=== PATIENT | male | born 1990 | race Hispanic/Latino ===

== ENCOUNTER 2023-09-16 10:47 | Emergency (ER) | payer SELFPAY ==
[2023-09-16] MEDS ORDERED: LIDOCAINE 2% W/EPI 1:200,000 MPF 20 ML VIAL IM ONE (11:35)
--- NOTE | 2023-09-16 12:08 | RAD REPORT ---
EXAM DESCRIPTION: RAD - Tib Fib Left - 09/16/2023 12:01 pm CLINICAL HISTORY: laceration COMPARISON: No comparisons FINDINGS/IMPRESSION: No acute fracture. No malalignment. No significant focal degenerative changes. Eccentric nonaggressive appearing sclerotic focus in the proximal tibia is consistent with a benign f ibro-osseous lesion of no clinical significance. No radiopaque foreign body .
--- NOTE | 2023-09-16 12:54 | ER ---
Nurse's Notes 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 Coronavirus screen: ll1 Client denies travel out of the [place] in the last 14 days. At this time, the client does not indicate any symptoms associated with coronavirus-19. Ebola Screen: Patient denies travel to an Ebola-affected area in the 21 days before illness onset. Complicating Factors: There are no complicating factors for this patient. Initial Sepsis Screen: Does the patient meet any 2 criteria? No. Patient's initial sepsis screen is negative. Does the patient have a suspected source of infection? No. Patient's initial sepsis screen is negative. Risk Assessment: Do you want to hurt yourself or someone else? Patient reports no desire to harm self or others. Onset of symptoms was September 16, 2023. 10:58 Method Of Arrival: Ambulatory ll1 10:58 Acuity: BAIRON 3 ll1 Historical: - Allergies: 10:58 No Known Allergies; ll1 - PMHx: 10:58 None; ll1 - PSHx: 10:58 None; ll1 Historical Immunization: - Administered Vaccines 13:03 Doxycycline PO 100 mg tl4 13:03 Tetanus Toxoid,Adsorbed IM 0.5 ml tl4 Sales Support Representative: [email or web address]; Exp: SatOct 22 2025; Lot #: [id number]; Series: 1 of 1; Patient Consent: Obtained; Date/Time: ; Source Name: Ramakrishna Hernandez; Source Relationship: Self; Address Information: [address] [place] [id number]; ; Education: Provided; VIS Presented Date: ; VIS Publication: Tetanus/Diphtheria (Td) Vaccine VIS 07/31/2016 (historic) 12:04 Lidocaine Infiltration (2 %) 10 ml tl4 - Immunization history:: Adult Immunizations up to date. - Infectious Disease History:: Denies. - Social history:: Smoking status: Patient reports the use of cigarette tobacco products, smokes one-half pack cigarettes per day. Screenin:54 [facility] ED Fall Risk Assessment (Adult) History of falling in the last 3 months, hb including since admission No falls in past 3 months (0 pts) Confusion or Disorientation No (0 pts) Intoxicated or Sedated No (0 pts) Impaired Gait Yes (1 pt) Mobility Assist Device Used No (0 pt) Altered Elimination No (0 pt) Score/Fall Risk Level 0 - 2 = Low Risk Oriented to surroundings, Maintained a safe environment. Abuse screen: Denies threats or abuse. Nutritional screening: No deficits noted. Tuberculosis screening: No symptoms or risk factors identified. Assessment: 10:54 General: Appears in no apparent distress. uncomfortable, Behavior is calm, cooperative. hb Pain: Complains of pain in left calf Pain currently is 3 out of 10 on a pain scale. Quality of pain is described as aching, Is continuous. Neuro: Level of Consciousness is awake, alert, obeys commands, Oriented to person, place, time, situation. Cardiovascular: Rhythm is regular. Respiratory: Respiratory effort is even, unlabored, Respiratory pattern is regular, symmetrical. GI: Abdomen is round non-distended. : No signs and/or symptoms were reported regarding the genitourinary system. EENT: No signs and/or symptoms were reported regarding the EENT system. Derm: Skin is intact, Skin is dry, Skin is normal, two inch laceration noted to pt's left calf, no active bleeding noted, pt states "I was in the water fishing and my leg fell in a whole and something cut me". 10:54 Musculoskeletal: Range of motion: limited in left leg. Injury Description: Laceration hb sustained to left calf is clean, 2.6 to 7.5 cm long, not bleeding. 12:00 Reassessment: No changes from previously documented assessment. hb 13:15 Reassessment: No changes from previously documented assessment. rs5 Vital Signs: 10:58 BP 156 / 81; Pulse 89; Resp 17; Pulse Ox 100% ; Weight 90.72 kg; Pain 6/10; ll1 13:18 BP 128 / 82; Pulse 70; Resp 18; Temp 98.7(O); Pulse Ox 100% on R/A; Pain 0/10; tl4 10:58 Pain Scale: Adult ll1 13:18 Pain Scale: Adult tl4 ED Course: 10:51 Patient arrived in ED. ra3 10:51 Maxx Palacios PA is PHCP. cp 10:51 Maxx France MD is Attending Physician. cp 10:54 Patient has correct armband on for positive identification. Placed in gown. Bed in low hb position. Call light in reach. Side rails up X2. 10:58 Arm band placed on. ll1 10:59 Triage completed. ll1 11:33 Michael Pradhan, RN is Primary Nurse. rs5 12:00 No provider procedures requiring assistance completed. hb 12:02 XRAY Tib Fib LEFT In Process Unspecified. EDMS 13:19 Provided Education on: call camacho. tl4 13:19 Patient did not have IV access during this emergency room visit. tl4 Administered Medications: 11:26 CANCELLED (Physician Discretion): lidocaine(2 %) 10 ml 5 ml Infiltration once; to cp bedside 12:04 Drug: Lidocaine Infiltration (2 %) 10 ml 5 ml Infiltration once; to bedside with tl4 epinephrine {Note: administered by JOSSELIN Do.} Volume: 5 ml; Route: Infiltration; 12:20 Follow up: Response: No adverse reaction tl4 13:03 Drug: Doxycycline PO 100 mg PO once Route: PO; tl4 13:18 Follow up: Response: No adverse reaction tl4 13:03 Drug: Tetanus Toxoid,Adsorbed IM 0.5 ml IM once; Provide Vaccine Information Statement tl4 (VIS). {Sales Support Representative: [email or web address]; Exp: SatOct 22 2025; Lot #: [id number]; Series: 1 of 1; Patient Consent: Obtained; Date/Time: ; Source Name: Ramakrishna Hernandez; Source Relationship: Self; Address Information: [address], [facility] [address]; ; Education: Provided; VIS Presented Date: ; VIS Publication: Tetanus/Diphtheria (Td) Vaccine VIS 07/31/2016 (historic)} {Note: VIS date 11/25/2020.} Route: IM; Site: right deltoid; 13:18 Follow up: Response: No adverse reaction tl4 Medication: 13:19 Vaccine Information Statement (VIS) provided today. Questions and/or concerns tl4 addressed. VIS edition date: November 25, 2020. Outcome: 12:54 Discharge ordered by . cp 13:19 Discharged to home ambulatory, tl4 13:19 Condition: stable 13:19 Discharge instructions given to patient, Instructed on discharge instructions, follow up and referral plans. medication usage, wound care, Demonstrated understanding of instructions, follow-up care, medications, wound care, Prescriptions given X 2, 13:19 Patient left the ED. tl4 Signatures: Dispatcher [employer] EDMS Maxx Palacios PA PA cp Baxter, Heather, RN RN Severiano Botello RN RN ll1 Michael Pradhan RN RN rs5 Osmin Ibanez RN RN tl4 Lesia Carter 3
--- NOTE | 2023-09-16 12:55 | EDPHYS ---
Physician Documentation [facility] Name: Ramakrishna Hernandez Age: 33 yrs Sex: Male : 1990 Arrival Date: 09/16/2023 Time: 10:47 Bed 20 Private MD: ED Physician Maxx France HPI: 09/15 11:15 This 33 yrs old Male presents to ER via Ambulatory with complaints of cp Laceration To Leg. 11:15 The patient has a laceration occurred outdoors. The laceration(s) is(are) located on cp the medial side of left lower leg. Onset: The symptoms/episode began/occurred just prior to arrival. Associated signs and symptoms: The patient has no apparent associated signs or symptoms. 11:15 Patient presents to ED with laceration injury to left lower leg that occurred after cp stepping in hole [place]. Reports piece of metal caused injury. Historical: - Allergies: 10:58 No Known Allergies; ll1 - PMHx: 10:58 None; ll1 - PSHx: 10:58 None; ll1 - Immunization history:: Adult Immunizations up to date. - Infectious Disease History:: Denies. - Social history:: Smoking status: Patient reports the use of cigarette tobacco products, smokes one-half pack cigarettes per day. ROS: 11:20 Constitutional: Negative for body aches, chills, fever, cp 11:20 Cardiovascular: Negative for chest pain, 11:20 Respiratory: Negative for cough, shortness of breath, wheezing, 11:20 Skin: Positive for laceration(s), of the left lower leg, 11:20 Neuro: Negative for numbness, weakness, cp 11:20 All other systems are negative, Exam: 11:25 Constitutional: The patient appears in no acute distress, alert, awake, well developed, cp well nourished, uncomfortable, 11:25 Head/Face: Normocephalic, atraumatic. cp 11:25 Cardiovascular: Rate: normal, Rhythm: regular, 11:25 Respiratory: the patient does not display signs of respiratory distress, Respirations: normal, no use of accessory muscles, no retractions, 11:25 Abdomen/GI: Inspection: abdomen appears normal, 11:25 Back: pain, is absent, ROM is normal, 11:25 Musculoskeletal/extremity: Extremities: grossly normal except: noted in the left lower leg: laceration noted medial side of calf area with mild active bleeding, no foreign bodies noted, fascia intact, ROM: full active range of motion, in the left leg, Perfusion: the extremity is normally perfused throughout, Sensation intact. Vital Signs: 10:58 BP 156 / 81; Pulse 89; Resp 17; Pulse Ox 100% ; Weight 90.72 kg; Pain 6/10; ll1 13:18 BP 128 / 82; Pulse 70; Resp 18; Temp 98.7(O); Pulse Ox 100% on R/A; Pain 0/10; tl4 10:58 Pain Scale: Adult ll1 13:18 Pain Scale: Adult tl4 Laceration: 12:45 Wound Repair of 8.5cm ( 3.3in ) subcutaneous laceration to medial side of left lower cp leg. Linear shaped.. Distal neuro/vascular/tendon intact. Anesthesia: Wound infiltrated with 10 mls of 2% lidocaine. Wound prep: Moderate cleansing by me, Wound irrigation. Skin closed with 14 1-0 [place] using staple gun. Dressed with Bacitracin, 4x4's. Patient tolerated well. MDM: 11:03 Patient medically screened. 12:53 Data reviewed: vital signs, nurses notes, radiologic studies, plain films, and as a cp result, I will discharge patient. 12:53 Differential diagnosis: superficial laceration, tendon injury, vascular injury, open cp fracture. I considered the following discharge prescriptions or medication management in the emergency department Medications were administered in the Emergency Department. See MAR. Counseling: I had a detailed discussion with the patient and/or guardian regarding the historical points, exam findings, and any diagnostic results supporting the discharge/admit diagnosis, radiology results, the need for outpatient follow up, a family practitioner, to return to the emergency department if symptoms worsen or persist or if there are any questions or concerns that arise at home. Response to treatment: the patient's symptoms have markedly improved after treatment, and as a result, I will discharge patient. 09/15 11:10 Order name: XRAY Tib Fib LEFT; Complete Time: 12:11 cp 09/15 12:11 Interpretation: Report reviewed. 09/15 11:11 Order name: Wound Care; Complete Time: 12:43 09/15 11:26 Order name: Dressing - Wound; Complete Time: 11:38 cp 09/15 11:26 Order name: Gloves, Sterile; Complete Time: 11:38 cp 09/15 11:26 Order name: Setup Suture Tray; Complete Time: 11:38 cp 09/15 12:46 Order name: Wound dressing; Complete Time: 12:56 cp Administered Medications: 11:26 CANCELLED (Physician Discretion): lidocaine(2 %) 10 ml 5 ml Infiltration once; to cp bedside 12:04 Drug: Lidocaine Infiltration (2 %) 10 ml 5 ml Infiltration once; to bedside with tl4 epinephrine {Note: administered by PA. Ernestina} Volume: 5 ml; Route: Infiltration; 12:20 Follow up: Response: No adverse reaction tl4 13:03 Drug: Doxycycline PO 100 mg PO once Route: PO; tl4 13:18 Follow up: Response: No adverse reaction tl4 13:03 Drug: Tetanus Toxoid,Adsorbed IM 0.5 ml IM once; Provide Vaccine Information Statement tl4 (VIS). {Salesperson Shoes: [employer]; Exp: SatOct 22 2025; Lot #: [id number]; Series: 1 of 1; Patient Consent: Obtained; Date/Time: ; Source Name: Ramakrishna Hernandez; Source Relationship: Self; Address Information: [address] [place] [address], [place] [id number]; ; Education: Provided; VIS Presented Date: ; VIS Publication: Tetanus/Diphtheria (Td) Vaccine VIS 07/31/2016 (historic)} {Note: VIS date 11/25/2020.} Route: IM; Site: right deltoid; 13:18 Follow up: Response: No adverse reaction tl4 Disposition Summary: 09/16/23 12:54 Discharge Ordered Notes: Location: Home cp Problem: new cp Symptoms: have improved cp Condition: Stable cp Diagnosis - Laceration without foreign body of lower leg - left cp Followup: cp - With: Private Physician - When: 10 - 14 days - Reason: Staple/Suture removal Discharge Instructions: - Discharge Summary Sheet cp - Laceration Care, Adult cp - Sutured Wound Care cp Forms: - Medication Reconciliation Form cp - Antibiotic Education cp - Prescription Opioid Use cp - Patient Portal Instructions cp - Leadership Thank You Letter cp Prescriptions: - Ibuprofen 800 mg Oral Tablet - take 1 tablet ORAL route every 8 hours As needed take with food; 30 tablet; cp Refills: 0, Product Selection Permitted - Doxycycline Hyclate 100 mg Oral Tablet - take 1 tablet ORAL route every 12 hours; 20 tablet; Refills: 0, Product cp Selection Permitted Signatures: Dispatcher [employer] EDMS Maxx Palacios PA PA cp Severiano Botello RN RN ll1 Osmin Ibanez RN RN tl4 Corrections: (The following items were deleted from the chart) 11:26 11:26 Lidocaine Infiltration (2 %) 10 ml 5 ml Infiltration once; to bedside ordered. cp cp 19:58 09/14 12:45 Wound Repair of 8.5cm ( 3.3in ) subcutaneous laceration to medial side of cp left lower leg. Linear shaped.. Distal neuro/vascular/tendon intact. Anesthesia: Wound infiltrated with 10 mls of 2% lidocaine. Wound prep: Moderate cleansing by me, Wound irrigation. Skin closed with 14 1-0 [place] using staple gun. Dressed with Bacitracin, 4x4's. Patient tolerated well. cp
[2023-09-16] MEDS ORDERED: TDAP (DIPHTH,PERTUSS(ACELL),TET VAC) 0.5 ML VIAL IMVAC ONE (12:57)
[2023-09-16] MEDS ORDERED: DOXYCYCLINE 100 MG CAP PO ONE (12:57)
[2023-09-16 13:30] VITALS: BP 128/82; TEMP 98.7; O2SAT 100
== END 2023-09-16 13:19 | disposition home or self-care (01) ==
LOC: ER 10:47
PROC: 0HQLXZZ Repair Left Lower Leg Skin, External Approach (ICD-10-PCS; principal; 2023-09-16)
DX: S81.812A Laceration without foreign body, left lower leg, initial encounter (principal)
CPT/HCPCS: 90471; 99284